=== PATIENT | male | born 1970 | race Hispanic/Latino ===

== ENCOUNTER 2017-03-24 06:07 | Observation (INO) | payer OTHER ==
[2017-03-24 06:18] VITALS: BMI 24.4
[2017-03-24] MEDS ORDERED: Morphine 4 MG/ML VIAL ONE (07:36)
--- NOTE | 2017-03-24 07:44 | ED PDOC ---
HPI: Back Time Seen by Provider: 03/24/17 06:58 Chief Complaint (Nursing): Back Pain History Per: Patient History/Exam Limitations: no limitations Onset/Duration Of Symptoms: Gradual (3 days), Worse Since (today) Current Symptoms Are (Timing): Still Present Full Body Front + Back: 1 - pain worse with movement associated bl chest and arm numbness no weakness Quality Of Discomfort: Dull Description Of Injury (Context): after chiropractic manipulation Severity: Moderate Associated Symptoms: None, New Numbness Exacerbating Factor(s): Movement Additional History Per: Patient Additional Complaint(s): no bowel or bladder retention or incontinence, no prev sx, no trauma except for usual chiropractic manipulation woke with mild dysphagia no bv/dv/weakness, no prev sx. Past Medical History Reviewed: Historical Data, Nursing Documentation, Vital Signs Vital Signs: Last Vital Signs Temp 98.4 F 03/24/17 06:17 Pulse 85 03/24/17 06:17 Resp 16 03/24/17 06:17 BP 117/93 H 03/24/17 06:17 Pulse Ox 98 03/24/17 06:17 - Medical History PMH: Denies: Chronic Kidney Disease - Family History Family History: States: Unknown Family Hx - Living Arrangements Living Arrangements: With Family - Social History Current smoker - smoking cessation education provided: No Drugs: Denies - Allergies Allergies/Adverse Reactions: Allergies Allergy/AdvReac Type Severity Reaction Status Date / Time No Known Allergies Allergy Verified 03/24/17 06:17 Review of Systems ROS Statement: Except As Marked, All Systems Reviewed And Found Negative Constitutional: Negative for: Fever, Chills, Weakness Cardiovascular: Negative for: Chest Pain, Palpitations Respiratory: Negative for: Cough, Shortness of Breath Gastrointestinal: Negative for: Nausea, Vomiting, Abdominal Pain Musculoskeletal: Positive for: Neck Pain, Back Pain (thoracic) Neurological: Positive for: Numbness, Headache. Negative for: Weakness, Incoordination, Change in Speech, Confusion, Seizures, Altered Mental Status, Dizziness Physical Exam - Reviewed Nursing Documentation Reviewed: Yes Vital Signs Reviewed: Yes - Physical Exam Appears: Positive for: Uncomfortable Head Exam: Positive for: ATRAUMATIC, NORMAL INSPECTION, NORMOCEPHALIC Skin: Positive for: Normal Color, Warm, Dry Eye Exam: Positive for: Normal appearance, EOMI, PERRL. Negative for: Periorbital swelling, Periorbital tenderness ENT: Positive for: Pharynx Is (clear,mmm). Negative for: Nasal Congestion, Pharyngeal Erythema, Tonsillar Exudate, Tonsillar Swelling Neck: Positive for: Normal, Painless ROM, Supple. Negative for: Decreased ROM, Limited ROM, Trachea Midline, Pain On Movement Of Neck Cardiovascular/Chest: Positive for: Regular Rate, Rhythm, Chest Non Tender. Negative for: Edema, Gallop, Murmur, Bradycardia, Tachycardia Respiratory: Positive for: Normal Breath Sounds. Negative for: Decreased Breath Sounds, Accessory Muscle Use, Crackles, Stridor, Wheezing, Respiratory Distress Pulses-Radial (L): 2+ Pulses-Radial (R): 2+ Gastrointestinal/Abdominal: Positive for: Normal Exam, Bowel Sounds, Soft. Negative for: Tenderness Back: Positive for: Normal Inspection. Negative for: L CVA Tenderness, R CVA Tenderness Extremity: Positive for: Normal ROM. Negative for: Tenderness, Pedal Edema, Calf Tenderness, Capillary Refill, Deformity, Swelling Neurologic/Psych: Positive for: Alert, scrap wheeler II-XII, Oriented, Mood/Affect (calm) , Cerebellar Tests (nml), Other. Negative for: Motor/Sensory Deficits, Aphasia , Facial Droop - Laboratory Results Result Diagrams: 03/24/17 07:40 03/24/17 07:40 - ECG ECG: Positive for: Interpreted By In ECG Rhythm: Positive for: Normal QRS, Normal ST Segment, Sinus Rhythm. Negative for: ST/T Changes Interpretation Of Abn EKG: rate of 71 O2 Sat by Pulse Oximetry: 98 Pulse Ox Interpretation: Normal - Radiology X-Ray: Interpreted by In X-Ray Interpretation: No Acute Disease - Progress ED Course And Treament: IPROCEDURE: MR THORACIC SPINE WITH AND WITHOUT CONTRAST HISTORY: bl hand numbness after trauma r/op cord compressio COMPARISON: None available. TECHNIQUE: Multiecho multiplanar sequences were performed through the thoracic spine with and without the use of intravenous contrast. FINDINGS: ALIGNMENT: Normal thoracic spinal alignment. Normal thoracic kyphosis. VERTEBRA: Vertebral body height are preserved. There is large Schmorl nodes at the superior endplate of T11. MARROW: Marrow signal unremarkable. PARASPINAL SOFT TISSUES: Unremarkable. CORD: Unremarkable thoracic cord. No volume loss, signal abnormality or syrinx. DISCS: No disc herniation, spinal canal stenosis, or neuroforaminal narrowing. ENHANCEMENT: No abnormal enhancement. OTHER FINDINGS: None. IMPRESSION: No evidence of acute fracture or subluxation. No evidence of thoracic cord compression. Large Schmorl nodes at the superior endplate of T11 incidentally noted. No evidence of enhancing mass lesion in the thoracic cord. PROCEDURE: MR CERVICAL SPINE WITH AND WITHOUT CONTRAST HISTORY: B/L hand numbness after trauma r/op cord compression COMPARISON: None available. TECHNIQUE: Multiecho multiplanar sequences were performed through the cervical spine with and without the use of intravenous contrast. FINDINGS: Straightening of the cervical spine which could be due to muscle spasm. Craniocervical junction unremarkable. Vertebral body heights preserved. No marrow signal abnormality. Normal cervical cord. No paraspinal abnormality. No abnormal enhancement C2-3: No disc herniation, spinal canal stenosis or neural foraminal narrowing. C3-4: There is a small disc bulging seen without evidence of significant spinal or neural foraminal narrowing C4-5: No disc herniation, spinal canal stenosis or neural foraminal narrowing. C5-C6: Broad-based disc bulging seen associated with mild spinal and neural foraminal narrowing. Uyov-fq-efjyujyk intervertebral disc space degenerative changes and narrowing seen. C6-C7: Small broad-based disc bulging seen associated with mild spinal stenosis. No evidence of significant neural foraminal narrowing. Xhyc-yk-pidnqmhq narrowing of the intervertebral disc space seen. Degenerative disc changes are also noted. C7-T1: No disc herniation, spinal canal stenosis or neural foraminal narrowing. OTHER FINDINGS: None. IMPRESSION: No evidence of cervical cord compression. Straightening of the cervical spine which could be due to muscle spasm. Multilevel small disc bulging more prominent at C5-C6 associated with mild spinal stenosis. Mild bilateral neural foraminal narrowing at C5-C6. Dexh-yw-hbwutqph degenerative disc changes at C5-C6 and C6-C7. PROCEDURE: MR THORACIC SPINE WITH AND WITHOUT CONTRAST HISTORY: bl hand numbness after trauma r/op cord compressio COMPARISON: None available. TECHNIQUE: Multiecho multiplanar sequences were performed through the thoracic spine with and without the use of intravenous contrast. FINDINGS: ALIGNMENT: Normal thoracic spinal alignment. Normal thoracic kyphosis. VERTEBRA: Vertebral body height are preserved. There is large Schmorl nodes at the superior endplate of T11. MARROW: Marrow signal unremarkable. PARASPINAL SOFT TISSUES: Unremarkable. CORD: Unremarkable thoracic cord. No volume loss, signal abnormality or syrinx. DISCS: No disc herniation, spinal canal stenosis, or neuroforaminal narrowing. ENHANCEMENT: No abnormal enhancement. OTHER FINDINGS: None. IMPRESSION: No evidence of acute fracture or subluxation. No evidence of thoracic cord compression. Large Schmorl nodes at the superior endplate of T11 incidentally noted. No evidence of enhancing mass lesion in the thoracic cord. has mild sx now mostly cp will admit to tele obs no obvious spinal corad abnormality. Re-evaluation Time: 13:48 Condition: Improved Disposition - Clinical Impression Clinical Impression: Chest pain - Patient ED Disposition Is Patient to be Admitted: No Counseled Patient/Family Regarding: Studies Performed, Diagnosis - Disposition Disposition Time: 12:40 Condition: STABLE Forms: [employer] (Nepali) - Pt Status Changed To: Hospital Disposition Of: Observation - POA Present On Arrival: None
[2017-03-24 08:54] LABS: BASO % 0.5 % (0.0-2.0); EOS % 0.7 % (0.0-4.0); LYMPH # 1.6 K/uL (1.0-4.3); LYMPH % 25.3 % (20.0-40.0); MEAN CELL VOLUME 90.5 fl (80.0-94.0); MEAN CORPUSCULAR HEMOGLOBIN 31.2 pg (27.0-31.0); MEAN CORPUSCULAR HGB CONC 34.4 g/dL (33.0-37.0); MEAN PLATELET VOLUME 7.8 fl (7.2-11.7); MONO # 0.5 K/uL (0.0-0.8); MONO % 8.7 % (0.0-10.0); NEUT % 64.8 % (50.0-75.0); NRBC % 0.1 % (0.0-0.0); RBC 5.14 Mil/uL (4.40-5.90); RED CELL DISTRIBUTION WIDTH 12.8 % (11.5-14.5); WHITE BLOOD COUNT 6.2 K/uL (4.8-10.8)
[2017-03-24 09:04] LABS: ALB/GLOB RATIO 1.6 (1.0-2.1); ALBUMIN 4.7 g/dL (3.5-5.0); ALT/SGPT 39 U/L (21-72); AST/SGOT 37 U/L (17-59); BLOOD UREA NITROGEN 13 mg/dl (9-20); CALCIUM 9.5 mg/dL (8.4-10.2); GFR AFRICAN-AMERICAN > 60; GFR NON-AFRICAN AMERICAN > 60
[2017-03-24 09:12] LABS: INR 1.1 (0.9-1.2); PARTIAL THROMBOPLASTIN TIME 35.3 Seconds (25.6-37.1); PROTHROMBIN TIME 11.7 Seconds (9.8-13.1)
[2017-03-24] MEDS ORDERED: Gadodiamide 287 MG/ML VIAL (15ML) IV ONE (09:33)
--- NOTE | 2017-03-24 09:52 | CT ---
PROCEDURE: CT HEAD WITHOUT CONTRAST. HISTORY: Headache back numbness COMPARISON: None available. TECHNIQUE: Axial computed tomography images were obtained through the head/brain without intravenous contrast. Radiation dose: Total exam DLP = 892.12 mGy-cm. This CT exam was performed using one or more of the following dose reduction techniques: Automated exposure control, adjustment of the mA and/or kV according to patient size, and/or use of iterative reconstruction technique. FINDINGS: HEMORRHAGE: No intracranial hemorrhage. BRAIN: No mass effect or edema. No atrophy or chronic microvascular ischemic changes. VENTRICLES: Unremarkable. No hydrocephalus. CALVARIUM: Unremarkable. PARANASAL SINUSES: Unremarkable as visualized. No significant inflammatory changes. MASTOID AIR CELLS: Unremarkable as visualized. No inflammatory changes. OTHER FINDINGS: None. IMPRESSION: No evidence of acute intracranial hemorrhage intracranial collection territorial infarct mass effect or midline shift.
--- NOTE | 2017-03-24 10:19 | CARD ---
APPROVED REPORT EKG Measurement Heart [id number] [place] [id number] <Conclusion> Normal sinus rhythm Normal ECG
--- NOTE | 2017-03-24 10:54 | MRI ---
PROCEDURE: MRI BRAIN WITHOUT CONTRAST HISTORY: perez, bl numbness trouble dysphagia COMPARISON: None. TECHNIQUE: Multiplanar, multisequence MR images of the brain were obtained without intravenous contrast enhancement. FINDINGS: HEMORRHAGE: None DWI: No evidence of an acute or early subacute infarction. BRAIN PARENCHYMA: No mass effect or edema. No atrophy or chronic microvascular ischemic changes. VENTRICLES: Unremarkable. No hydrocephalus. CRANIUM: Unremarkable. ORBITS: Grossly unremarkable. PARANASAL SINUSES/MASTOIDS: Clear VASCULAR SYSTEM: Skull base flow voids intact. OTHER FINDINGS: None. IMPRESSION: Unremarkable non contrast enhanced MRI of the brain.
--- NOTE | 2017-03-24 12:47 | MRI ---
PROCEDURE: MR CERVICAL SPINE WITH AND WITHOUT CONTRAST HISTORY: B/L hand numbness after trauma r/op cord compression COMPARISON: None available. TECHNIQUE: Multiecho multiplanar sequences were performed through the cervical spine with and without the use of intravenous contrast. FINDINGS: Straightening of the cervical spine which could be due to muscle spasm. Craniocervical junction unremarkable. Vertebral body heights preserved. No marrow signal abnormality. Normal cervical cord. No paraspinal abnormality. No abnormal enhancement C2-3: No disc herniation, spinal canal stenosis or neural foraminal narrowing. C3-4: There is a small disc bulging seen without evidence of significant spinal or neural foraminal narrowing C4-5: No disc herniation, spinal canal stenosis or neural foraminal narrowing. C5-C6: Broad-based disc bulging seen associated with mild spinal and neural foraminal narrowing. Jnxc-qb-jjoiayjb intervertebral disc space degenerative changes and narrowing seen. C6-C7: Small broad-based disc bulging seen associated with mild spinal stenosis. No evidence of significant neural foraminal narrowing. Vcqr-mr-kyltzchl narrowing of the intervertebral disc space seen. Degenerative disc changes are also noted. C7-T1: No disc herniation, spinal canal stenosis or neural foraminal narrowing. OTHER FINDINGS: None. IMPRESSION: No evidence of cervical cord compression. Straightening of the cervical spine which could be due to muscle spasm. Multilevel small disc bulging more prominent at C5-C6 associated with mild spinal stenosis. Mild bilateral neural foraminal narrowing at C5-C6. Atpo-jq-iqzorzpi degenerative disc changes at C5-C6 and C6-C7.
--- NOTE | 2017-03-24 13:06 | MRI ---
PROCEDURE: MR THORACIC SPINE WITH AND WITHOUT CONTRAST HISTORY: bl hand numbness after trauma r/op cord compressio COMPARISON: None available. TECHNIQUE: Multiecho multiplanar sequences were performed through the thoracic spine with and without the use of intravenous contrast. FINDINGS: ALIGNMENT: Normal thoracic spinal alignment. Normal thoracic kyphosis. VERTEBRA: Vertebral body height are preserved. There is large Schmorl nodes at the superior endplate of T11. MARROW: Marrow signal unremarkable. PARASPINAL SOFT TISSUES: Unremarkable. CORD: Unremarkable thoracic cord. No volume loss, signal abnormality or syrinx. DISCS: No disc herniation, spinal canal stenosis, or neuroforaminal narrowing. ENHANCEMENT: No abnormal enhancement. OTHER FINDINGS: None. IMPRESSION: No evidence of acute fracture or subluxation. No evidence of thoracic cord compression. Large Schmorl nodes at the superior endplate of T11 incidentally noted. No evidence of enhancing mass lesion in the thoracic cord.
--- NOTE | 2017-03-24 14:21 | RAD ---
HISTORY: Chest pain. COMPARISON: 06/19/2016. FINDINGS: LUNGS: No active pulmonary disease. PLEURA: No significant pleural effusion identified, no pneumothorax apparent. CARDIOVASCULAR: No radiographic findings to suggest acute or significant cardiovascular disease. OSSEOUS STRUCTURES: OpenNo significant abnormalities. VISUALIZED UPPER ABDOMEN: Normal. OTHER FINDINGS: None. IMPRESSION: No active disease. No significant interval change compared to the prior examination(s). No preliminary report provided by emergency department personnel.
[2017-03-25 08:49] VITALS: RESP 20
--- NOTE | 2017-03-25 10:35 | CARD ---
APPROVED REPORT EKG Measurement Heart [id number] RI 168P49 [id number] <Conclusion> Sinus bradycardia Early repolarization Otherwise normal ECG
--- NOTE | 2017-03-25 10:35 | CARD ---
APPROVED REPORT EKG Measurement Heart [id number] MD [id number] <Conclusion> Normal sinus rhythm Normal ECG
[2017-03-25 12:49] VITALS: BP 108/69; PULSE 70; TEMP 98.1; O2SAT 96
--- NOTE | 2017-03-25 14:36 | CP.PCM.HP ---
History of Present Illness - History of Present Illness History of Present Illness: 46 y/o M with PMHx of Hereditary hyperlipidemia, and Atypical Migraine presents yesterday to ED c/o upper back pain that started last Friday, intermittent, radiating to his chest and associated to numbness sensation of his chest, neck and upper extremities. Denies N/V, abdominal pain, profuse sweating, diarrheas , dizziness. Present on Admission - Present on Admission Any Indicators Present on Admission: No History of DVT/PE: No History of Uncontrolled Diabetes: No Urinary Catheter: No Decubitus Ulcer Present: No Review of Systems - Review of Systems All systems: reviewed and no additional remarkable complaints except (as per HPI ) Past Patient History - Past Medical History & Family History Past Medical History?: Yes - Past Social History Smoking Status: Never Smoked - CARDIAC Hx Cardiac Disorders: No - PULMONARY Hx Respiratory Disorders: No Other/Comment: legionnaires disease - NEUROLOGICAL Hx Migraine: Yes - HEENT Hx HEENT Problems: No - RENAL Hx Chronic Kidney Disease: No - ENDOCRINE/METABOLIC Hx Endocrine Disorders: No - HEMATOLOGICAL/ONCOLOGICAL Hx Blood Disorders: No - INTEGUMENTARY Hx Dermatological Problems: No - MUSCULOSKELETAL/RHEUMATOLOGICAL Hx Falls: No - GASTROINTESTINAL Hx Gastrointestinal Disorders: No - GENITOURINARY/GYNECOLOGICAL Other/Comment: Hx Pelvic Floor dysfunction - PSYCHIATRIC Hx Substance Use: No - SURGICAL HISTORY Hx Surgeries: Yes Other/Comment: Hx Varicocele Sx - ANESTHESIA Hx Anesthesia: Yes Hx Anesthesia Reactions: No Hx Malignant Hyperthermia: No Has any member of the family had a problem w/ anesthesia?: No Meds Home Medications: Home Medication List Medication Instructions Recorded Confirmed Type Ibuprofen [Motrin Tab] 600 mg PO Q8 PRN tab 03/25/17 Rx Allergies/Adverse Reactions: Allergies Allergy/AdvReac Type Severity Reaction Status Date / Time No Known Allergies Allergy Verified 03/24/17 06:17 Physical Exam - Constitutional Appears: No Acute Distress - ENT Exam ENT Exam: Mucous Membranes Moist - Respiratory Exam Respiratory Exam: Clear to Auscultation Bilateral, NORMAL BREATHING PATTERN - Cardiovascular Exam Cardiovascular Exam: REGULAR RHYTHM, +S1, +S2 - GI/Abdominal Exam GI & Abdominal Exam: Normal Bowel Sounds, Soft. absent: Guarding, Rigid, Tenderness - Extremities Exam Extremities exam: Positive for: normal inspection. Negative for: calf tenderness, pedal edema - Neurological Exam Neurological exam: Alert, CN II-XII Intact, Oriented x3 - Psychiatric Exam Psychiatric exam: Normal Affect, Normal Mood - Skin Skin Exam: Dry, Intact, Normal Color Results - Vital Signs Recent Vital Signs: Last Vital Signs Temp 98.1 F 03/25/17 12:48 Pulse 70 03/25/17 12:48 Resp 20 03/25/17 12:48 BP 108/69 03/25/17 12:48 Pulse Ox 96 03/25/17 12:48 - Labs Result Diagrams: 03/24/17 07:40 03/24/17 07:40 Labs: Laboratory Results - last 24 hr 03/24/17 03/25/17 19:30 03:35 Troponin I < 0.0120 < 0.0120 Assessment & Plan - Assessment and Plan (Free Text) Assessment: 46 y/o with PMHx of Hereditary hyperlipidemia, and atypical migraine presenting with chest pain and numbness. Plan: Chest pain most likely 2/2 musculoskeletal condition -admit for observation in telemetry -troponin I x 3 neg EKG showed no acute ST-T wave changes CXR showed no active disease Thoracic spine MRI showed no evidence of Fx. Please see report for details Cervical spine MRI showed straightening of C sp possible 2/2 muscle spams, multiple small disc bulging, associated with mild spinal stenosis. please see report for details. Numbness Head CT no hemorrhage Brain MRI showed unremarkable findings DVT prophylaxis ambulating - Date & Time Date: 03/25/17 Time: 08:00
== END 2017-03-25 14:28 | disposition home or self-care (01) ==
LOC: H.ER 06:07 → H.ERHOLD 15:17 → H.TEL 17:21
PROVIDERS: ADMIT Family Medicine; ATTEND Family Medicine
DX: R07.89 Other chest pain (principal); R20.0 Anesthesia of skin; E78.4 Other hyperlipidemia; G43.809 Other migraine, not intractable, without status migrainosus; M48.02 Spinal stenosis, cervical region